=== PATIENT | male | born 1935 ===

== ENCOUNTER 2016-07-06 00:23 | Observation (INO) | payer MEDICARE, OTHER ==
--- NOTE | ~2016-07-06 | HP ---
Unit #: [id number] #: [id number] Patient: JASON SHAVER [id number] [facility]. [place], [place] [address] [id number] MR#: [id number] NAME: JASON SHAVER ROOM: 479 Age: 80 Sex: M Admission Date: 07/06/2016 : 1935 Attending Physician: Shilo Ann Jr., M.D. Referring Physician: Self Referral-Refer Use Only Primary Care Physician: Primary Care Physician No HISTORY AND PHYSICAL CHIEF COMPLAINT Abdominal wall cellulitis with abscess. PRESENT ILLNESS The patient is an 80-year-old white male who came into town from [place] for the [place]. He was staying in [place] and developed severe redness with pain after being on the bus traveling to [place] from his city and presented to the emergency room at [place] with the complaints of redness and some drainage from his abdominal wall. When seen there, he was felt to have an abdominal wall abscess. 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 He has had no previous abdominal wall abscesses. No fever. No chills. No other symptoms. PAST MEDICAL HISTORY As noted above, he has had surgery in the past with several exploratory surgeries including repair of a gastric ulcer apparently with development of enterocutaneous fistula. This is in the right lower quadrant of his abdomen. MEDICATIONS He is on multiple medications. These are listed on the nursing sheet. ALLERGIES None known. TRANSFUSIONS None in the past. FAMILY HISTORY Noncontributory. SOCIAL HISTORY The patient is and lives at home with his family. Has normal good appetite. No recent weight change and no recent weight loss. IMMUNIZATIONS Up to date. REVIEW OF SYSTEMS A 12-system review has been performed which was nonremarkable except for Unit #: [id number] #: [id number] Patient: JASON SHAVER that noted in the present illness. PHYSICAL EXAMINATION VITAL SIGNS: The patient is afebrile. Vital signs are normal. HEENT: Nonremarkable. NECK: Supple. CHEST: There is equal bilateral expansion with bilateral equal breath sounds. The lungs clear bilaterally. HEART: Regular rhythm without murmurs or gallops. There was no evidence of cardiomegaly clinically. ABDOMEN: Soft. There is significant cellulitis centrally with a 2 to 3 mm open area draining serous fluid and some purulent appearing fluid. There is induration centrally for at least 6 inches around the open area. No evidence of any hernias. No ascites. There is no mass or organomegaly and no gross abdominal distention. There is some emed-oh-xspabyea tenderness. BACK: There is no CVA tenderness. EXTREMITIES: With full range of motion without limitation. No evidence of peripheral edema. NEUROLOGIC: Grossly intact. IMPRESSION Patient has abdominal wall abscess which is spontaneously draining and probably needs to be opened up more and cleaned out. I have discussed this with him. He wants to return home and have this done tomorrow in [place]. The plan will be to give him IV antibiotics here and discharge him back to [place] so he can pack and return home. He understands the need for this area to be opened and debrided and still understands that this should be done as soon as possible and he wants to go home for this. Dictated by Shilo Ann Jr. MWoodrow. PETRA/cat TD: 07/07/2016 09:52 JOB #: [id number] HISTORY AND PHYSICAL Page 1 of 1 X Shilo Ann MD X HISTORY AND PHYSICAL
[2016-07-06] MEDS ORDERED: LEVAQUIN PO (11:55)
== END 2016-07-06 12:40 | disposition home or self-care (01) ==
LOC: CED 00:23 → CEDOF 02:57 → C4C 10:21
DX: L02.211 Cutaneous abscess of abdominal wall (principal)
CPT/HCPCS: 96374; G0378; J1335